=== PATIENT | male | born 1930 | race Caucasian/White ===

== ENCOUNTER 2018-08-04 10:37 | Inpatient (IN) | payer MEDICARE, OTHER | END 2018-08-07 06:50 | disposition E | LOC: ORTHO 4S 08-05 01:15 → ER 10:37 → ED HOLD 12:11 → PCU 3S 15:00 | DX: A41.9 Sepsis, unspecified organism (principal); I63.9 Cerebral infarction, unspecified; G93.41 Metabolic encephalopathy; J18.9 Pneumonia, unspecified organism; I48.91 Unspecified atrial fibrillation; E11.8 Type 2 diabetes mellitus with unspecified complications; F03.90 Unspecified dementia, unspecified severity, without behavioral disturbance, psychotic disturbance, mood disturbance, and anxiety ==